=== PATIENT | male | born 1955 | race Caucasian/White ===

== ENCOUNTER 2022-01-13 16:30 | Inpatient (IN) ==
[2022-01-13 17:07] LABS: Basophils # 0.1 K/mcL (0.0-0.2); Eosinophils # 0.7 K/mcL (0.0-0.6); Eosinophils % 8.3 %; Hematocrit 44.9 % (37.5-50.1); Hemoglobin 14.8 g/dL (12.9-16.9); Immature Granulocytes % 0.5 % (0-4); Lymphocytes # 3.4 K/mcL (0.6-4.6); Lymphocytes % 38.2 %; Mean Corpuscular Hemoglobin 30.4 pg (28.0-33.3); Mean Corpuscular Volume 92.2 fL (83.0-100.0); Mean Platelet Volume 9.6 fL (9.4-12.4); Monocytes # 0.7 K/mcL (0.0-1.3); Monocytes % 7.9 %; Neutrophils # 3.9 K/mcL (1.6-8.9); Platelet Count 203 K/mcL (140-400); Red Blood Count 4.87 M/mcL (4.19-5.50); Red Cell Distribution Width 13.8 % (11.5-14.5); Segmented Neutrophils % 44.1 %; White Blood Count 8.8 K/mcL (4.3-11.1)
[2022-01-13 17:30] LABS: Acetaminophen < 10 mcg/mL (10-20); BUN/Creatinine Ratio 17 (6-26); Blood Urea Nitrogen 18 mg/dL (8-23); Calcium 9.4 mg/dL (8.6-10.3); Carbon Dioxide 23 mEq/L (23-29); Chloride 105 mEq/L (98-107); Chol/HDL Ratio 3.4 (0-4.9); Cholesterol 126 mg/dL (< 200); Ethanol < 10 mg/dL (Less than 10); Glucose 98 mg/dL (70-105); HDL Cholesterol 37 mg/dL (40-59); LDL Cholesterol,Calculated 68 mg/dL (< 100); Osmolality,Calculated 284 (280-300); Potassium 4.3 mEq/L (3.5-5.1); Salicylate < 2.5 mg/dL (15.0-30.0); Sodium 136 mEq/L (136-145); Triglycerides 103 mg/dL (< 150)
[2022-01-13 18:42] LABS: Bacteria,Urine Few per hpf (None-Few); Bilirubin,Urine Negative (Negative); Blood,Urine Trace (Negative); Clarity,Urine Clear (Clear); Color,Urine Yellow (Yellow); Glucose,Urine (UA) Normal (Normal); Ketones,Urine Negative (Negative); Leukocyte Esterase,Urine Negative (Negative); Mucus,Urine Few per lpf (None-Few); Nitrite,Urine Negative (Negative); Protein,Urine 30 mg/dL (Neg-Trace); Specific Gravity,Urine 1.026 (1.010-1.025); Squamous Epithelial Cell,Urine Few per hpf (None-Few); Urobilinogen,Urine Normal (Normal); WBC,Urine 0-3 per hpf (0-3)
[2022-01-13 19:15] LABS: Estimated Average Glucose 146 mg/dl; Hemoglobin A1C 6.7 %
[2022-01-13 19:18] LABS: Amphetamine Screen,Urine Negative ng/mL (Cutoff=1000); Barbiturate Screen,Urine Negative ng/mL (Cutoff=200); Benzodiazepines Screen,Urine Negative ng/mL (Cutoff=200); Cannabinoid Screen,Urine Negative ng/mL (Cutoff = 50); Cocaine Screen,Urine Negative ng/mL (Cutoff= 300); Opiate Screen,Urine Negative ng/mL (Cutoff=300); Phencyclidine Screen,Urine Negative ng/mL (Cutoff=25)
[2022-01-13 20:18] LABS: Troponin I 0.03 ng/mL (< 0.04)
[2022-01-13] MEDS ORDERED: Aspirin 325 MG TABLET PO ONE (21:09)
[2022-01-13] MEDS: Nitroglycerin 0.4 MG TAB.SUBL SL SCH ×2 (21:18→22:27)
[2022-01-13] MEDS ORDERED: Nitroglycerin 0.4 MG TAB.SUBL SL PRN (21:55)
[2022-01-13] MEDS ORDERED: Acetaminophen 325 MG TABLET PO PRN (22:02)
[2022-01-13] MEDS ORDERED: Ondansetron 4 MG/2 ML VIAL IVP PRN (22:02)
[2022-01-13] MEDS ORDERED: Naloxone 0.4 MG/ML INJ IVP PRN (22:02)
[2022-01-13] MEDS ORDERED: Methyl Salicylate/Menthol 85 APPL/85 GM TUBE TP PRN (22:07)
[2022-01-13] MEDS ORDERED: traZODone 50 MG TABLET PO PRN (22:19)
[2022-01-13] MEDS ORDERED: Levalbuterol Neb 1.25 MG/3 ML IH PRN (22:21)
[2022-01-13] MEDS: Morphine Sulfate 2 MG/ML SYRINGE IVP PRN (23:13)
[2022-01-14] MEDS ORDERED: *HR* LORazepam 2 MG/ML VIAL IVP ONE (02:01)
[2022-01-14] MEDS ORDERED: *HR* LORazepam 2 MG/ML VIAL ONE (02:07)
[2022-01-14] MEDS ORDERED: *HR* OxyCODONE Immed Rel 5 MG TABLET PO ONE (03:37)
[2022-01-14] MEDS: *HR* Heparin 5,000 UNIT/ML VIAL SQ SCH ×3 (06:15→20:56)
[2022-01-14] MEDS ORDERED: Regadenoson 0.4 MG/5 ML SYRINGE IVP ONE (07:34)
[2022-01-14] MEDS: Aspirin Enteric Coated 81 MG Tablet PO SCH (10:37)
[2022-01-14] MEDS: lisinopriL 10 MG TABLET PO SCH (10:37)
[2022-01-14] MEDS: Budesonide/Formoterol 160/4.5 1 PUFF INH IH SCH ×2 (10:47→22:35)
[2022-01-14] MEDS: Ipratropium/Albuterol Neb 3 ML IH SCH ×3 (10:49→22:35)
[2022-01-14] MEDS ORDERED: *HR* LORazepam 2 MG/ML VIAL IVP PRN (15:18)
[2022-01-14] MEDS ORDERED: *HR* LORazepam 2 MG/ML VIAL IM PRN (15:20)
[2022-01-14] MEDS: *HR* OxyCODONE Immed Rel 5 MG TABLET PO PRN (15:37)
[2022-01-14] MEDS ORDERED: traZODone 50 MG TABLET PO ONE (22:23)
[2022-01-15] MEDS: Ipratropium/Albuterol Neb 3 ML IH SCH ×4 (04:14→22:46)
[2022-01-15] MEDS: *HR* Heparin 5,000 UNIT/ML VIAL SQ SCH ×3 (05:57→19:39)
[2022-01-15 08:46] LABS: Hematocrit 40.7 % (37.5-50.1); Mean Corpuscular HGB Conc 31.7 g/dL (31.6-35.5); Mean Corpuscular Hemoglobin 29.8 pg (28.0-33.3); Mean Platelet Volume 10.2 fL (9.4-12.4); Platelet Count 175 K/mcL (140-400); Red Blood Count 4.33 M/mcL (4.19-5.50); Red Cell Distribution Width 13.9 % (11.5-14.5); White Blood Count 5.2 K/mcL (4.3-11.1)
[2022-01-15 08:49] LABS: Hemoglobin 12.9 g/dL (12.9-16.9)
[2022-01-15] MEDS: lisinopriL 10 MG TABLET PO SCH (09:01)
[2022-01-15] MEDS: Aspirin Enteric Coated 81 MG Tablet PO SCH (09:01)
[2022-01-15] MEDS: *HR* OxyCODONE Immed Rel 5 MG TABLET PO PRN ×2 (09:02→15:14)
[2022-01-15 09:05] LABS: Calcium 9.2 mg/dL (8.6-10.3); Potassium 4.3 mEq/L (3.5-5.1)
[2022-01-15 09:08] LABS: Magnesium 1.9 mg/dL (1.6-2.6)
[2022-01-15 09:20] LABS: Thyroid Stimulating Hormone 1.032 mcIU/mL (0.340-5.600)
[2022-01-15] MEDS: Budesonide/Formoterol 160/4.5 1 PUFF INH IH SCH ×2 (10:45→22:46)
[2022-01-15] MEDS: Morphine Sulfate 2 MG/ML SYRINGE IVP PRN ×2 (11:58→19:33)
[2022-01-16] MEDS: Morphine Sulfate 2 MG/ML SYRINGE IVP PRN ×2 (00:10→04:22)
[2022-01-16 03:01] VITALS: BP 116/77
[2022-01-16] MEDS: Ipratropium/Albuterol Neb 3 ML IH SCH ×2 (03:19→09:39)
[2022-01-16] MEDS: *HR* Heparin 5,000 UNIT/ML VIAL SQ SCH (04:21)
[2022-01-16 07:10] VITALS: PULSE 86; TEMP 97.5
[2022-01-16] MEDS: Aspirin Enteric Coated 81 MG Tablet PO SCH (08:40)
[2022-01-16] MEDS: lisinopriL 10 MG TABLET PO SCH (08:40)
[2022-01-16] MEDS: *HR* OxyCODONE Immed Rel 5 MG TABLET PO PRN (08:45)
[2022-01-16] MEDS: Budesonide/Formoterol 160/4.5 1 PUFF INH IH SCH (09:39)
[2022-01-16 09:41] VITALS: O2SAT 98
[2022-01-16] MEDS ORDERED: predniSONE 20 MG TABLET PO SCH (10:30)
== END 2022-01-16 11:04 | DRG 885 ==
LOC: EMEROOARM 16:30 → 3BNU 16:30 → SUATTDRO 21:13 → 3BNU 21:54
PROVIDERS: ADMIT Internal Medicine; ATTEND Nurse Practitioner